=== PATIENT | female | born 1970 | race Caucasian/White ===

== ENCOUNTER 2022-03-24 18:03 | Emergency (ER) | payer MEDICAID, SELFPAY ==
[2022-03-24 18:09] VITALS: BP 135/84; PULSE 103; RESP 16; TEMP 36.4; O2SAT 98; BMI 29.9
--- NOTE | 2022-03-24 18:49 | CTR_ITS ---
PROCEDURE INFORMATION: Exam: CT Head Without Contrast Exam date and time: 03/24/2022 7:01 PM Age: 51 years old Clinical indication: Numbness / parasthesia; Bilateral; Additional info: Paresthesias TECHNIQUE: Imaging protocol: Computed tomography of the head without contrast. Radiation optimization: All CT scans at this facility use at least one of these dose optimization techniques: automated exposure control; mA and/or kV adjustment per patient size (includes targeted exams where dose is matched to clinical indication); or iterative reconstruction. Other protocol: This patient has received 0 known CTs and 0 known cardiac nuclear medicine studies in the 12 months prior to the current study. COMPARISON: No relevant prior studies available. RADIATION DOSE METRICS: Total DLP (mGy-cm): 1150.38 FINDINGS: Brain: Normal. No hemorrhage. Unremarkable white matter. No mass effect. Cerebral ventricles: No ventriculomegaly. Paranasal sinuses: Visualized sinuses are unremarkable. No fluid levels. Mastoid air cells: Visualized mastoid air cells are well aerated. Bones/joints: Unremarkable. No acute fracture. Soft tissues: Unremarkable. CT/CT head wo con* [id number] IMPRESSION: No acute intracranial abnormality.
--- NOTE | 2022-03-24 19:19 | W.ED.GENADLT ---
HPI - General Adult General: Chief complaint: General Medical Stated complaint: tongue/body numbness Time Seen by Provider: 03/24/22 18:18 Source: patient History of Present Illness: 51-year-old female who says that she began to have numbness and some tingling to her face, jaw, and toes on a flight back to [place] from [place] on 03/03. This is persisted since then. It is migrated to her upper extremities, upper back, and essentially all over her body at times now. She says that her tongue feels strange and. She denies any fever. She denies significant headache. She denies other medical problems other than alcoholism. She does state that she has had brain fog at times since that time as well, worse over the last 3 days Onset (ago): week(s) (3) Radiation: other Severity: mild Quality: other Pain Consistency: other Relieving factors: other Associated symptoms: Deny chest pain, confusion, dyspnea, fevers/chills, headache(s), palpitations, short of breath, syncope, vomiting or weakness Review of Systems Const: Denies: fever(s) Eyes: Denies: change in vision ENMT: Denies: throat pain Card: Denies: chest pain, palpitations or syncope Resp: Denies: dyspnea GI: Denies: vomiting Neuro: Denies: headache(s) or confusion Physical Exam Const: COMMON NORMALS: no acute distress and alert GENERAL APPEARANCE: cooperative; not ill appearing and not frail appearing HENMT: COMMON NORMALS: normocephalic, atraumatic and Normal external nose present HEAD & SCALP: normocephalic and atraumatic FACE & SINUS: normal facial exam and face symmetric NOSE: Normal external nose present Eye: COMMON NORMALS: Equal, round and reactive pupils present and EOMs intact bilaterally PUPIL: Yes Equal, round and reactive pupils present Neck/C-Spine: COMMON NORMALS: no meningeal signs GENERAL: Yes trachea midline Chest: CHEST: Yes Symmetrical chest wall rise Resp: COMMON NORMALS: normal respiratory effort, No retractions, No use of accessory muscles and clear to auscultation bilaterally AUSCULTATION: clear to auscultation bilaterally Cardio: COMMON NORMALS: regular rate and regular rhythm RATE: regular rate RHYTHM: regular rhythm GI: COMMON NORMALS: Normal to inspection, nondistended, normoactive bowel sounds present Extremity: COMMON NORMALS: no pedal edema Neuro: SHELIA COMA SCALE: document GCS findings [place] coma scale eye opening: Spontaneous [place] coma scale verbal response: Orientated [place] coma scale motor response: Obey commands Shelia coma scale total score: 15 COMMON NORMALS: CN's II-XII intact bilaterally, no focal motor deficits and no sensory deficits noted SENSORIUM/ORIENTATION: Yes alert MENINGEAL SIGNS: Yes no meningeal signs COORDINATION/BALANCE: [id number] test normal and dpeg-cp-[id number] test normal SPEECH: speech normal SENSORY EXAM: Yes extremities (intact) MOTOR EXAM: Pronator motor function not present, Motor fasciculations not present and Normal motor muscle tone present throughout COORDINATION: vlnryw-gu-[id number] test normal and msoc-pr-tvrx test normal Psych: COMMON NORMALS: mental status grossly normal, cooperative and speech normal SPEECH: Yes normal speech Skin: COMMON NORMALS: no rashes or lesions noted GENERAL SKIN EXAM: no rashes or lesions noted Course Vital Signs: Vital signs: Vital Signs Temperature 97.5 F L 03/24/22 18:09 Pulse Rate 94 03/24/22 20:52 Respiratory Rate 16 03/24/22 20:52 Blood Pressure 124/96 03/24/22 20:52 Pulse Oximetry 96 03/24/22 20:52 Oxygen Delivery Me thod 03/24/22 19:20 MDM - General Adult Medical Decision Making Patient admits to daily alcohol use. Paresthesias may be related to vitamin deficiency. Folic acid level is low. Her vitamin B12 level is normal. Thiamine is pending. She will be supplemented with folic acid and thiamine. Her laboratory shows a megaloblastic anemia likely related to the above. INR is normal. Platelet count is normal. Liver enzymes are minimally elevated. Alcohol level is [address] is negative. We will make her follow-up appointment with a local physician for continued care. Lab Data 03/24/22 19:15 03/24/22 19:[address] 03/24/22 18:49 IMPRESSION: No acute intracranial abnormality. Laboratory Results WBC 9.7 10^3/uL (4.0-10.0) 03/24/22 19:15 RBC 2.71 10^6/uL (4.1-5.3) L 03/24/22 19:15 Hgb 11.4 g/dL (11.5-15.3) L 03/24/22 19:15 Hct 33.3 % (37.0-47.0) L 03/24/22 19:15 MCV 122.9 fl (81-99) H 03/24/22 19:15 MCH 42.1 pg (28.0-34.0) H 03/24/22 19:15 MCHC 34.2 g/dL (30.0-36.0) 03/24/22 19:15 RDW 15.2 % (12.1-15.1) H 03/24/22 19:15 Plt Count 352 10^3/cmm (130-400) 03/24/22 19:15 MPV 9.6 fL (7.4-10.4) 03/24/22 19:15 Neut % (Auto) 45.4 % 03/24/22 19:15 Lymph % (Auto) 41.4 % 03/24/22 19:15 [place] % (Auto) 5.4 % 03/24/22 19:15 Eos % (Auto) 2.8 % 03/24/22 19:15 Baso % (Auto) 0.8 % 03/24/22 19:15 Neut # (Auto) 4.41 10^3/uL (1.8-7.7) 03/24/22 19:15 Lymph # (Auto) 4.0 10^3/uL (0.8-4.8) 03/24/22 19:15 [place] # (Auto) 0.5 10^3/uL (0.2-0.9) 03/24/22 19:15 Eos # (Auto) 0.3 10^3/uL (0.0-0.8) 03/24/22 19:15 Baso # (Auto) 0.1 10^3/uL (0.0-0.1) 03/24/22 19:15 Nucleated RBC % (auto) 0.6 % 03/24/22 19:15 Nucleated RBCs # 0.1 /100WBC 03/24/22 19:15 PT 13.20 SECONDS (12.1-14.9) 03/24/22 19:15 INR 0.97 (0.8-1.2) 03/24/22 19:15 Sodium 141 mmol/L (136-145) 03/24/22 19:15 Potassium 3.8 mmol/L (3.5-5.1) 03/24/22 19:15 Chloride 98 mmol/L (98-107) 03/24/22 19:15 Carbon Dioxide 27 mmol/L (22-29) 03/24/22 19:15 Anion Gap 19.8 (5-19) H 03/24/22 19:15 BUN 3 mg/dL (6-20) L 03/24/22 19:15 Creatinine 0.5 mg/dL (0.5-0.9) 03/24/22 19:15 GFR Calculation 130.6 mL/min (90-130) H 03/24/22 19:15 Glucose 111 mg/dL (65-115) 03/24/22 19:15 Calculated Osmolality 289 mOsm/kg (285-295) 03/24/22 19:15 Calcium 9.4 mg/dL (8.5-10.5) 03/24/22 19:15 Magnesium 2.3 mg/dL (1.7-2.3) 03/24/22 19:15 Total Bilirubin 0.8 mg/dL (0.15-1.2) 03/24/22 19:15 AST 268 U/L (0-32) H 03/24/22 19:15 ALT 83 U/L (0-33) H 03/24/22 19:15 Alkaline Phosphatase 141 U/L (35-105) H 03/24/22 19:15 Total Protein 7.5 g/dL (6.6-8.7) 03/24/22 19:15 Albumin 4.6 g/dL (3.5-5.2) 03/24/22 19:15 Globulin 2.9 g/dL (1.3-4.6) 03/24/22 19:15 Vitamin B12 493 pg/mL (232-1245) 03/24/22 19:15 Folate 2.2 ng/mL (4.8-37.3) L 03/24/22 19:15 Ethyl Alcohol 99 mg/dL (0-10) H 03/24/22 19:15 Discharge Plan Discharge Patient Disposition: Home Clinical Impression: Deficiency of folic acid Condition: Stable Prescriptions: New folic acid 1 mg tablet 1,000 mcg PO DAILY Qty: 30 0RF thiamine HCl (vitamin B1) 100 mg tablet 100 mg PO DAILY Qty: 30 0RF Discharge Orders: Discharge ED (Routine); Ordered 03/24/22 Ordered By: Suraj Khan Patient Instructions: Thiamine (By mouth), Folic Acid (By mouth), Paresthesia (ED), Alcohol Dependence (ED) Activity Restrictions/Additional Instructions: The paresthesias you are experiencing are likely due to vitamin deficiency related to alcohol use. Try supplementing with these vitamins, and we will make you a follow-up appointment for recheck. Further outpatient testing can be performed if symptoms do not resolve. Coding Level of Care Code ED Flight Test Supervisor for Chg Fwd Exam Comprehensive
[2022-03-24 19:20] VITALS: BP 143/87; PULSE 97; RESP 16; O2SAT 97
[2022-03-24 19:39] LABS: Basophils # 0.1 10^3/uL (0.0-0.1); Basophils % 0.8 %; Eosinophils # 0.3 10^3/uL (0.0-0.8); Eosinophils % 2.8 %; Hematocrit 33.3 % (37.0-47.0); Hemoglobin 11.4 g/dL (11.5-15.3); Lymphocytes % 41.4 %; Mean Corpuscular HGB Conc 34.2 g/dL (30.0-36.0); Mean Corpuscular Hemoglobin 42.1 pg (28.0-34.0); Mean Corpuscular Volume 122.9 fl (81-99); Mean Platelet Volume 9.6 fL (7.4-10.4); Monocytes # 0.5 10^3/uL (0.2-0.9); Monocytes % 5.4 %; Neutrophils # 4.41 10^3/uL (1.8-7.7); Neutrophils % 45.4 %; Nucleated Red Blood Cells # 0.1 /100WBC; Nucleated Red Blood Cells % 0.6 %; Platelet Count 352 10^3/cmm (130-400); Red Blood Count 2.71 10^6/uL (4.1-5.3); Red Cell Distribution Width 15.2 % (12.1-15.1); White Blood Count 9.7 10^3/uL (4.0-10.0)
[2022-03-24 19:45] LABS: INR 0.97 (0.8-1.2)
[2022-03-24 19:56] LABS: Alanine Aminotransferase 83 U/L (0-33); Albumin Level 4.6 g/dL (3.5-5.2); Alcohol Level 99 mg/dL (0-10); Alkaline Phosphatase 141 U/L (35-105); Anion Gap 19.8 (5-19); Aspartate Amino Transferase 268 U/L (0-32); Blood Urea Nitrogen 3 mg/dL (6-20); Calcium 9.4 mg/dL (8.5-10.5); Carbon Dioxide 27 mmol/L (22-29); Chloride 98 mmol/L (98-107); Globulin 2.9 g/dL (1.3-4.6); Glomerular Filtration Rate 130.6 mL/min (90-130); Glucose 111 mg/dL (65-115); Magnesium 2.3 mg/dL (1.7-2.3); Osmolality Calculated 289 mOsm/kg (285-295); Potassium 3.8 mmol/L (3.5-5.1); Sodium 141 mmol/L (136-145); Total Bilirubin 0.8 mg/dL (0.15-1.2); Total Protein 7.5 g/dL (6.6-8.7)
[2022-03-24 20:11] LABS: Vitamin B12 493 pg/mL (232-1245)
[2022-03-24 20:12] LABS: Folate Level 2.2 ng/mL (4.8-37.3)
[2022-03-24] MEDS: thiamine 100 mg Tablet PO (20:39)
[2022-03-24] MEDS: folic acid 1 mg Tablet PO (20:39)
[2022-03-24] MEDS: nicotine 21 mg Patch 1 PATCH TRANSDERMA (20:39)
[2022-03-24 20:52] VITALS: BP 124/96; PULSE 94; RESP 16; O2SAT 96
--- NOTE | 2022-03-25 12:56 | DCPLANNER ---
icu manager had message to speak with patient about getting established with a primary care physician. icu manager called phone number [phone] - unable to speak with patient at this time. icu manager left a voicemail for patient to return case aide phone call.
[2022-03-28 22:25] LABS: Vitamin B1 (Thiamine),Blood 104 nmol/L (78-185)
== END 2022-03-24 20:50 | disposition home or self-care (01) ==
PROVIDERS: Emergency Provider Emergency Medicine
DX: E53.8 Deficiency of other specified B group vitamins (principal)
CPT/HCPCS: 70450; 80053; 80307; 82607; 82746; 83735; 84425; 85025; 85610; 99284

== ENCOUNTER 2022-06-15 17:22 | Inpatient (IN) | payer MEDICAID, SELFPAY ==
[2022-06-15 17:29] VITALS: BP 141/86; PULSE 101; RESP 18; TEMP 37.1; O2SAT 100
--- NOTE | 2022-06-15 17:48 | W.ED.ABDPA2 ---
HPI - Abdominal Pain General: Chief Complaint: Abdominal Pain Stated Complaint: upper abd pain Time Seen by Provider: 06/15/22 17:48 History of Present Illness: Ms. Son is a 51-year-old lady with history of alcohol abuse presenting to the emergency department for epigastric abdominal pain. She reports onset of symptoms acutely at approximately 5 AM without known specific provoking event. She has had nonbilious and nonbloody emesis associated with this. Pain radiates through to the back. Moderate to severe in intensity. Reports last drink last night and over the past week has had more alcohol than typical due to increase stressors. Denies history of alcohol withdrawal seizures or DTs. No other specific changes in health, exacerbating, or alleviating factors identified. Onset (ago): hour(s) Location: Epigastric Radiation: back Exacerbating factors: eating, vomiting and movement Relieving factors: nothing Context: other Associated Symptoms: Reports chills, GI cramping, nausea and vomiting Review of Systems General: Reports: 10 or more systems reviewed and unremarkable except in HPI and below Const: Reports: chills GI: Reports: nausea, vomiting and GI cramping PFS ED PFSH: Medical History Abdominal pain Acute alcoholic pancreatitis Acute dehydration Duodenitis Hypokalemia Nausea & vomiting Transaminitis Surgical History No pertinent past surgical history Physical Exam Const: COMMON NORMALS: alert GENERAL APPEARANCE: cooperative and well developed HENMT: COMMON NORMALS: normocephalic and atraumatic HEAD & SCALP: normocephalic and atraumatic Eye: COMMON NORMALS: conjunctivae normal CONJUNCTIVA: Yes conjunctivae normal SCLERA: sclerae normal Neck/C-Spine: COMMON NORMALS: supple GENERAL: Yes trachea midline Resp: COMMON NORMALS: clear to auscultation bilaterally EFFORT & INSPECTION: Yes able to speak in complete sentences AUSCULTATION: clear to auscultation bilaterally Cardio: COMMON NORMALS: regular rhythm RATE: tachycardic RHYTHM: regular rhythm GI: COMMON NORMALS: Soft to palpation PALPATION: Yes Soft to palpation, Yes Tenderness to palpation present (GI), No Guarding due to palpation present (GI) and No Rigid due to palpation Extremity: GENERAL: Yes normal exam except as noted and No edema Neuro: COMMON NORMALS: moves all extremities SENSORIUM/ORIENTATION: Yes alert and No Orientation impaired Psych: COMMON NORMALS: mental status grossly normal and Normal thought process present THOUGHT PROCESS: Normal thought process present Course Vital Signs: Vital signs: Vital Signs Temperature 97.7 F 06/17/22 04:00 Pulse Rate 71 06/17/22 07:32 Respiratory Rate 17 06/17/22 12:53 Blood Pressure 114/73 06/17/22 07:32 Pulse Oximetry 94 06/17/22 07:32 Oxygen Delivery Me thod Room Air 06/17/22 07:32 MDM - Abdominal Pain Medical Decision Making 51-year-old lady presenting to the emergency department for epigastric pain in the context of alcohol abuse. She is uncomfortable appearing however nontoxic. Abdominal tenderness palpation is noted without evidence of acute surgical abdomen. No reported hematemesis or GI bleed type symptoms. Labs notable for mild leukocytosis and hemoconcentration compared to prior. Metabolic panel with dehydration and hypokalemia. Transaminitis consistent with reported alcohol misuse, mild elevation in lipase. No UTI. Toxic ingestions negative, UDS positive for opiates. CT demonstrates mild inflammation of the duodenum and retroperitoneal fat most consistent with pancreatitis. Patient treated with antiemetic, fluids, analgesia with only modest improvement and need for repeat doses of medication. Most likely etiology of patient's symptoms is alcoholic pancreatitis with alcoholic hepatitis. She has associated electrolyte and metabolic derangement. Given overall clinical status patient requires inpatient management. The results of ED evaluation were discussed with the patient including plan for admission due to requirement for level of care not available if discharged to prevent significant worsening/deterioration. Patient agreeable with plan. Discussed with hospitalist service who was agreeable to admit patient. Medical Records I reviewed the patient's medical records. Lab Data I reviewed the patient's lab results. 06/16/22 05:09 06/16/22 05:09 Labs/Radiology: Radiology Impressions Abdomen/Pelvis CT 06/15/22 19:14 IMPRESSION: Mild inflammation in the 3rd portion the duodenum with inflammation/fluid extending inferiorly in the retroperitoneal fat just anterior to the aorta and vena cava most consistent with mild radiographic pancreatitis. Gallbladder Ultrasound 06/15/22 23:01 IMPRESSION: 1. Hepatomegaly with echogenic parenchyma consistent with steatosis. Clinical correlation for acute/chronic hepatitis including MINER should be obtained. No obvious cirrhosis. 2. Sludge in the gallbladder lumen. No shadowing calculi or cholecystitis/bile duct dilatation. Laboratory Results WBC 12.2 10^3/uL (4.0-10.0) H 06/15/22 18:19 RBC 4.47 10^6/uL (4.1-5.3) 06/15/22 18:19 Hgb 16.0 g/dL (11.5-15.3) H 06/15/22 18:19 Hct 45.2 % (37.0-47.0) 06/15/22 18:19 MCV 101.1 fl (81-99) H 06/15/22 18:19 MCH 35.8 pg (28.0-34.0) H 06/15/22 18:19 MCHC 35.4 g/dL (30.0-36.0) 06/15/22 18:19 RDW 13.7 % (12.1-15.1) 06/15/22 18:19 Plt Count 234 10^3/cmm (130-400) 06/15/22 18:19 MPV 10.8 fL (7.4-10.4) H 06/15/22 18:19 Neut % (Auto) 70.6 % 06/15/22 18:19 Lymph % (Auto) 20.6 % 06/15/22 18:19 [place] % (Auto) 7.0 % 06/15/22 18:19 Eos % (Auto) 1.1 % 06/15/22 18:19 Baso % (Auto) 0.3 % 06/15/22 18:19 Neut # (Auto) 8.63 10^3/uL (1.8-7.7) H 06/15/22 18:19 Lymph # (Auto) 2.5 10^3/uL (0.8-4.8) 06/15/22 18:19 [place] # (Auto) 0.9 10^3/uL (0.2-0.9) 06/15/22 18:19 Eos # (Auto) 0.1 10^3/uL (0.0-0.8) 06/15/22 18:19 Baso # (Auto) 0.0 10^3/uL (0.0-0.1) 06/15/22 18:19 Nucleated RBC % (auto) 0 % 06/15/22 18:19 Nucleated RBCs # 0.0 /100WBC 06/15/22 18:19 PT 13.20 SECONDS (12.1-14.9) 06/15/22 18:19 INR 0.97 (0.8-1.2) 06/15/22 18:19 APTT 26.4 SECONDS (23.9-36.7) 06/15/22 18:19 Sodium 128 mmol/L (136-145) L 06/15/22 18:19 Potassium 2.6 mmol/L (3.5-5.1) L* 06/15/22 18:19 Chloride 89 mmol/L (98-107) L 06/15/22 18:19 Carbon Dioxide 27 mmol/L (22-29) 06/15/22 18:19 Anion Gap 14.6 (5-19) 06/15/22 18:19 BUN 1 mg/dL (6-20) L 06/15/22 18:19 Creatinine 0.5 mg/dL (0.5-0.9) 06/15/22 18:19 GFR Calculation 130.6 mL/min (90-130) H 06/15/22 18:19 Glucose 113 mg/dL (65-115) 06/15/22 18:19 Calculated Osmolality 263 mOsm/kg (285-295) L 06/15/22 18:19 Calcium 8.7 mg/dL (8.5-10.5) 06/15/22 18:19 Magnesium 1.8 mg/dL (1.7-2.3) 06/15/22 18:19 Total Bilirubin 1.2 mg/dL (0.15-1.2) 06/15/22 18:19 AST 132 U/L (0-32) H 06/15/22 18:19 ALT 91 U/L (0-33) H 06/15/22 18:19 Alkaline Phosphatase 178 U/L (35-105) H 06/15/22 18:19 C-Reactive Protein 15.7 mg/L (0.0-4.9) H 06/15/22 18:19 Total Protein 6.5 g/dL (6.6-8.7) L 06/15/22 18:19 Albumin 3.9 g/dL (3.5-5.2) 06/15/22 18:19 Globulin 2.6 g/dL (1.3-4.6) 06/15/22 18:19 Lipase 86 U/L (13-60) H 06/15/22 18:19 Vitamin B12 504 pg/mL (232-1245) 06/15/22 18:19 Folate Cancelled 06/15/22 18:19 Procalcitonin 0.11 ng/mL (0-0.5) 06/15/22 18:19 TSH 9.97 uIU/mL (0.27-4.20) H 06/15/22 18:19 Free T4 1.23 ng/dL (0.82-1.77) 06/15/22 18:19 HCG, Qual Negative (Negative) 06/15/22 18:19 Urine Color Yellow (Yellow) 06/15/22 19:12 Urine Appearance Clear (CLEAR) 06/15/22 19:12 Urine pH 7 (5-7) 06/15/22 19:12 Ur Specific [place] 1.010 (1.005-1.030) 06/15/22 19:12 Urine Protein Neg (Negative) 06/15/22 19:12 Urine Glucose (UA) Norm (Normal) 06/15/22 19:12 Urine Ketones Negative (Negative) 06/15/22 19:12 Urine Blood Neg (Negative) 06/15/22 19:12 Urine Nitrate Negative (Negative) 06/15/22 19:12 Urine Bilirubin Neg (Negative) 06/15/22 19:12 Urine Urobilinogen 1 mg/dL (Negative) H 06/15/22 19:12 Ur Leukocyte Esterase Negative (Negative) 06/15/22 19:12 Salicylates < 0.3 mg/dL (3-10) L 06/15/22 18:19 Urine Opiates Screen Positive ng/mL (Negative) H 06/15/22 19:04 Acetaminophen < 5.0 ug/mL (10-30) L 06/15/22 18:19 Ur Barbiturates Screen Negative ng/mL (Negative) 06/15/22 19:04 Ur Phencyclidine Scrn Negative ng/mL (Negative) 06/15/22 19:04 Ur Amphetamines Screen Negative ng/mL (Negative) 06/15/22 19:04 U Benzodiazepines Scrn Negative ng/mL (Negative) 06/15/22 19:04 Urine Cocaine Screen Negative ng/mL (Negative) 06/15/22 19:04 U Marijuana (THC) Screen Negative ng/mL (Negative) 06/15/22 19:04 Ethyl Alcohol < 10 mg/dL (0-10) 06/15/22 18:19 Discharge Plan Discharge Patient Disposition: Placed in Observation Admit Provider: Case Bowden Clinical Impression: Acute alcoholic pancreatitis, Abdominal pain, Transaminitis, Duodenitis, Hypokalemia, Acute dehydration, Nausea & vomiting Coding Level of Care Code 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
--- NOTE | 2022-06-15 17:57 | PC.NURSE ---
pt admits to suicidal thoughts but states she has no plans. reports she just restarted her medication about 2 months ago but has missed the past 3 days. education provided to pt regarding importance of taking medications as prescribed and avoidance of drinking alcohol with medications. pt verbalized understanding.
[2022-06-15 18:29] LABS: Basophils % 0.3 %; Eosinophils # 0.1 10^3/uL (0.0-0.8); Eosinophils % 1.1 %; Hematocrit 45.2 % (37.0-47.0); Lymphocytes # 2.5 10^3/uL (0.8-4.8); Lymphocytes % 20.6 %; Mean Corpuscular HGB Conc 35.4 g/dL (30.0-36.0); Mean Corpuscular Hemoglobin 35.8 pg (28.0-34.0); Mean Corpuscular Volume 101.1 fl (81-99); Mean Platelet Volume 10.8 fL (7.4-10.4); Monocytes # 0.9 10^3/uL (0.2-0.9); Neutrophils # 8.63 10^3/uL (1.8-7.7); Neutrophils % 70.6 %; Nucleated Red Blood Cells % 0 %; Platelet Count 234 10^3/cmm (130-400); Red Blood Count 4.47 10^6/uL (4.1-5.3); Red Cell Distribution Width 13.7 % (12.1-15.1); White Blood Count 12.2 10^3/uL (4.0-10.0)
[2022-06-15 18:38] LABS: HCG, Serum Qual Negative (Negative)
[2022-06-15 18:39] LABS: INR 0.97 (0.8-1.2); Partial Thromboplastin Time 26.4 SECONDS (23.9-36.7)
[2022-06-15] MEDS: morphine 4 mg/mL SDV 1 mL IVP ×2 (18:54→20:34)
[2022-06-15] MEDS: ondansetron 2 mg/ML SDV 2 mL 4 MG IVP (18:54)
[2022-06-15] MEDS: sodium chloride 0.9% 1,000 ML 999 ML IV (18:54)
[2022-06-15 19:01] LABS: Alanine Aminotransferase 91 U/L (0-33); Albumin Level 3.9 g/dL (3.5-5.2); Alkaline Phosphatase 178 U/L (35-105); Anion Gap 14.6 (5-19); Aspartate Amino Transferase 132 U/L (0-32); Calcium 8.7 mg/dL (8.5-10.5); Carbon Dioxide 27 mmol/L (22-29); Chloride 89 mmol/L (98-107); Globulin 2.6 g/dL (1.3-4.6); Glomerular Filtration Rate 130.6 mL/min (90-130); Glucose 113 mg/dL (65-115); Lipase 86 U/L (13-60); Sodium 128 mmol/L (136-145); Total Bilirubin 1.2 mg/dL (0.15-1.2); Total Protein 6.5 g/dL (6.6-8.7)
[2022-06-15 19:02] LABS: Thyroid Stimulating Hormone 9.97 uIU/mL (0.27-4.20)
[2022-06-15 19:08] LABS: Acetaminophen < 5.0 ug/mL (10-30); Alcohol Level < 10 mg/dL (0-10); Blood Urea Nitrogen 1 mg/dL (6-20); Osmolality Calculated 263 mOsm/kg (285-295); Salicylate < 0.3 mg/dL (3-10)
[2022-06-15 19:10] LABS: Potassium 2.6 mmol/L (3.5-5.1)
--- NOTE | 2022-06-15 19:14 | CTR_ITS ---
PROCEDURE INFORMATION: Exam: CT Abdomen And Pelvis With Contrast Exam date and time: 06/15/2022 7:42 PM Age: 51 years old Clinical indication: Abdominal pain; Epigastric; Additional info: Epigastric pain, ? pancreatitis, HX alcohol abuse TECHNIQUE: Imaging protocol: Computed tomography of the abdomen and pelvis with contrast. Radiation optimization: All CT scans at this facility use at least one of these dose optimization techniques: automated exposure control; mA and/or kV adjustment per patient size (includes targeted exams where dose is matched to clinical indication); or iterative reconstruction. Contrast material: OMNI 350; Contrast volume: 100 ml; Contrast route: INTRAVENOUS (IV); REPORTING DATA: Count of CT and Cardiac NM exams in prior 12 months: This patient has received [address] and 0 known cardiac nuclear medicine studies in the 12 months prior to the current study. COMPARISON: No relevant prior studies available. RADIATION DOSE METRICS: Total DLP (mGy-cm): 637.61 FINDINGS: Liver: Normal. No mass. Gallbladder and bile ducts: Normal. No calcified stones. No ductal dilation. Pancreas: See Stomach and bowel finding. Spleen: Normal. No splenomegaly. Adrenal glands: Normal. No mass. Kidneys and ureters: One or more nonobstructing left renal calyceal stones. Stomach and bowel: Mild inflammation in the 3rd portion the duodenum with inflammation/fluid extending inferiorly in the retroperitoneal fat just anterior to the aorta and vena cava most consistent with mild radiographic pancreatitis. Appendix: No evidence of appendicitis. Intraperitoneal space: Unremarkable. No free air. No significant fluid collection. Vasculature: Calcification of the abdominal aorta and/or iliac arteries consistent with atherosclerotic vessel disease. One or more calcified pelvic phleboliths. Lymph nodes: Unremarkable. No enlarged lymph nodes. Urinary bladder: Unremarkable as visualized. Reproductive: Unremarkable as visualized. Bones/joints: Unremarkable. No acute fracture. Soft tissues: Unremarkable. CT/CT abdomen pelvis w con* [id number] IMPRESSION: Mild inflammation in the 3rd portion the duodenum with inflammation/fluid extending inferiorly in the retroperitoneal fat just anterior to the aorta and vena cava most consistent with mild radiographic pancreatitis.
[2022-06-15 19:16] LABS: Add Urine Microscopic? NO; Charge for UA Resulting for Rev
[2022-06-15 19:20] LABS: Bilirubin Urine Neg (Negative); Blood Urine Neg (Negative); Glucose Urine UA Norm (Normal); Ketones Urine Negative (Negative); Leukocyte Esterase Urine Negative (Negative); Nitrate Urine Negative (Negative); Protein Urine Neg (Negative); Urine Appearance Clear (CLEAR); Urine Color Yellow (Yellow); Urobilinogen Urine 1 mg/dL (Negative); pH Urine 7 (5-7)
[2022-06-15 19:34] LABS: Amphetamines Screen Urine Negative (Negative); Barbiturates Screen Urine Negative (Negative); Benzodiazepines Screen Urine Negative (Negative); Cocaine Screen Urine Negative (Negative); Opiate Screen Urine Positive (Negative); PCP Screen Urine Negative (Negative); THC Screen Urine Negative (Negative)
[2022-06-15] MEDS: iohexol 350 mg/mL 500 mL Btl (per mL) IV (19:46)
[2022-06-15] MEDS: lidocaine 1% 5 ML in potassium chloride premix 100 ML 26.25 ML IV (19:58)
[2022-06-15] MEDS: nicotine 21 mg Patch 1 PATCH TRANSDERMA (20:28)
[2022-06-15 20:34] VITALS: RESP 16; O2SAT 98
[2022-06-15] MEDS: sodium chloride 0.9% 1,000 ML 150 ML IV (20:44)
[2022-06-15 22:02] VITALS: BP 122/77; PULSE 97; RESP 18; TEMP 36.5; O2SAT 90
[2022-06-15 22:22] VITALS: BP 121/77; PULSE 88; RESP 16; TEMP 36.7; O2SAT 93
[2022-06-15 22:31] VITALS: BMI 28.4
--- NOTE | 2022-06-15 22:46 | P.HP_ITS ---
Providers/Chief Complaint Admitting Physician: Case Bowden MD Chief Complaint: upper abd pain History of Present Illness Fernanda Son is a 51 year old female with a past medical history of alcoholism, history of mild alcohol withdrawal, presents to [facility] due to concerns for abdominal pain, nausea, her last drink was last night at 11 PM, she is not sure how much alcohol she drank, but she tells me that in the last week she went through a couple bottles of vodka, she tells me that she is gone through alcohol withdrawals in the past with only minor shakes, no other significant symptoms, but today she started developing lower abdominal pain, with nausea, no lightheadedness, dizziness, poor appetite, no diarrhea, her abdomen is a bit bloated, a bit distended, Review of Systems Const: Denies: fever(s) Eyes: Denies: change in vision Card: Denies: chest pain Resp: Denies: dyspnea GI: Reports: abdominal pain and nausea : Denies: flank pain or difficulty voiding Musc: Denies: back pain Skin/Breast: Denies: rash Neuro: Denies: headache(s) Medications/Allergies Home Medications Medication Instructions Recorded Confirmed Last Taken Type fluoxetine 20 mg capsule (Prozac) 20 mg PO DAILY 06/15/22 06/15/22 Unknown History vit no.95-ferrous 1 tab PO DAILY 06/15/22 06/15/22 Unknown History fumarate 28 mg-folic acid 800 mcg tablet () Allergies Allergy/AdvReac Type Severity Reaction Status Date / Time No Known Allergies Allergy Verified 03/24/22 18:15 PFSH Acute PFSH: Surgical History (Updated 06/15/22 @ 22:49 by Case Bowden MD) No pertinent past surgical history Vitals/I&O/Wt Last Vital Signs Temp 98.1 F 06/15/22 22:22 Pulse 88 06/15/22 22:22 Resp 16 06/15/22 22:22 BP 121/77 06/15/22 22:22 Pulse Ox 93 06/15/22 22:22 O2 Del Method Room Air 06/15/22 22:31 06/15/22 06/15/22 06/15/22 06:59 14:59 22:59 Intake Total 1000 / 1000 Balance 1000 / 1000 Weight last 48 hrs Weight 79.917 kg Weight 77.111 kg Physical Exam Const: COMMON NORMALS: no acute distress and patient oriented x3 HENMT: COMMON NORMALS: normocephalic Eye: COMMON NORMALS: Equal, round and reactive pupils present and EOMs intact bilaterally Neck/C-Spine: COMMON NORMALS: full ROM and no lymphadenopathy Resp: COMMON NORMALS: normal respiratory effort, No retractions, No use of accessory muscles and clear to auscultation bilaterally AUSCULTATION: clear to auscultation bilaterally Cardio: COMMON NORMALS: regular rate, regular rhythm, S1 normal heart sound present and S2 normal heart sound present RATE: regular rate RHYTHM: regular rhythm HEART SOUNDS: S1 normal heart sound present and S2 normal heart sound present GI: COMMON NORMALS: Soft to palpation INSPECTION: Yes normal to inspection and Yes abdominal distension AUSCULTATION: Yes Hypoactive bowel sounds present PALPATION: Yes Tenderness to palpation present (GI) Details: LLQ, RLQ, LUQ and RUQ Extremity: COMMON NORMALS: no pedal edema Neuro: COMMON NORMALS: patient oriented x3, CN's II-XII intact bilaterally, moves all extremities and no focal motor deficits Psych: COMMON NORMALS: mental status grossly normal Data 06/15/22 18:19 06/15/22 18:19 A&P Assessment and plan (1) Acute alcoholic pancreatitis: (2) Abdominal pain: (3) Transaminitis: (4) Duodenitis: (5) Hypokalemia: (6) Acute dehydration: (7) Nausea & vomiting: Plan Acute alcoholic pancreatitis -N.p.o. -IV fluids -Serial abdominal exams -Patient is DNR/DNI, confirmed with patient multiple times, son at bedside, she wants her son to make decisions for her if she cannot -Lovenox for DVT prophylaxis Acute hypokalemia -We will replace IV 80 mEq Serum magnesium levels pending Acute dehydration, IV fluids Duodenitis, likely secondary to pancreatitis, monitor, n.p.o. Acute alcohol withdrawal, WA protocol, banana bag Acute hyponatremia, IV fluids, dehydration Transaminitis likely sec to alcoholism Right upper quadrant pain, gallbladder ultrasound Attestations 2 Medical Necessity Statement*: Patient requires hospitalization, inpatient, greater than 2 midnights, for acute pancreatitis, alcohol withdrawal Coding Level of Care Code Acute Code for [facility] Diagnoses Acute alcoholic pancreatitis K85.20 Abdominal pain R10.9 Transaminitis R74.01 Duodenitis K29.80 Hypokalemia E87.6 Acute dehydration E86.0 Nausea & vomiting R11.2
[2022-06-15 22:53] VITALS: PULSE 86
--- NOTE | 2022-06-15 23:01 | USR_ITS ---
PROCEDURE INFORMATION: Exam: US Abdomen, Limited; Right Upper Quadrant Exam date and time: 06/15/2022 11:55 PM Age: 51 years old Clinical indication: Abdominal pain; Generalized; Additional info: Ruq pain TECHNIQUE: Imaging protocol: Real time ultrasound of the abdomen with image documentation. Limited exam focused on the right upper quadrant. COMPARISON: CT abdomen pelvis w con* [id number] 06/15/2022 7:42 PM FINDINGS: Liver: Details are somewhat limited due to echogenic liver and gaseous abdomen. Liver is enlarged with slightly echogenic parenchyma suggesting steatosis. No obvious cirrhosis or regional ascites. Assessment for mass lesions limited in this setting however no suspicious lesions were noted on recent CT exam. Gallbladder: Sludge in the lumen. No shadowing gallstones. There is no gallbladder wall thickening or Mckeon sign. Biliary ducts: No significant biliary dilatation. Proximal CBD measures 5 mm however distal CBD is obscured. Pancreas: Pancreas is poorly visualized. Right kidney: Normal. No mass. No hydronephrosis. Portal venous: Patent main portal vein with normal flow direction. US/US gall bladder [id number] IMPRESSION: 1. Hepatomegaly with echogenic parenchyma consistent with steatosis. Clinical correlation for acute/chronic hepatitis including MINER should be obtained. No obvious cirrhosis. 2. Sludge in the gallbladder lumen. No shadowing calculi or cholecystitis/bile duct dilatation.
[2022-06-15 23:28] VITALS: RESP 16
[2022-06-15] MEDS: pantoprazole 40 mg SDV IVP (23:28)
[2022-06-15] MEDS: morphine 4 mg/mL SDV 1 mL 2 MG IVP (23:28)
[2022-06-15] MEDS: LORazepam 2 mg/mL INJ 1 mL 1 MG IVP (23:29)
[2022-06-15] MEDS: enoxaparin 40 mg/0.4 mL Syringe SUBCUT (23:30)
[2022-06-15 23:35] LABS: Procalcitonin 0.11 ng/mL (0-0.5); Vitamin B12 504 pg/mL (232-1245)
[2022-06-15 23:53] LABS: Free T4 Free Thyroxine 1.23 ng/dL (0.82-1.77); Magnesium 1.8 mg/dL (1.7-2.3)
[2022-06-16] VITALS (12 sets, daily range): BP systolic 116–133; BP diastolic 76–85; PULSE 79–94; RESP 15–18; TEMP 36.6–36.8; O2SAT 90–98
[2022-06-16] MEDS: folic acid 1 MG, multivitamin inj 10 ML, thiamine 100 MG in sodium chloride 0.9% 1,000 ML 252.8 MG IV (00:23)
[2022-06-16 01:02] LABS: C Reactive Protein 15.7 mg/L (0.0-4.9)
[2022-06-16] MEDS: lidocaine 1% 5 ML in potassium chloride premix 100 ML 26.25 ML IV (01:26)
[2022-06-16] MEDS: morphine 4 mg/mL SDV 1 mL 2 MG IVP ×3 (04:11→20:15)
[2022-06-16 05:40] LABS: Basophils % 0.4 %; Eosinophils # 0.2 10^3/uL (0.0-0.8); Eosinophils % 1.8 %; Hematocrit 38.5 % (37.0-47.0); Hemoglobin 13.3 g/dL (11.5-15.3); Lymphocytes # 2.5 10^3/uL (0.8-4.8); Lymphocytes % 30.7 %; Mean Corpuscular HGB Conc 34.5 g/dL (30.0-36.0); Mean Corpuscular Hemoglobin 36.2 pg (28.0-34.0); Mean Corpuscular Volume 104.9 fl (81-99); Mean Platelet Volume 11.3 fL (7.4-10.4); Monocytes # 0.5 10^3/uL (0.2-0.9); Monocytes % 5.9 %; Neutrophils # 5.03 10^3/uL (1.8-7.7); Nucleated Red Blood Cells % 0 %; Platelet Count 170 10^3/cmm (130-400); Red Blood Count 3.67 10^6/uL (4.1-5.3); Red Cell Distribution Width 14.3 % (12.1-15.1); White Blood Count 8.3 10^3/uL (4.0-10.0)
[2022-06-16 07:35] LABS: Alanine Aminotransferase 72 U/L (0-33); Albumin Level 3.2 g/dL (3.5-5.2); Alkaline Phosphatase 147 U/L (35-105); Anion Gap 11.7 (5-19); Aspartate Amino Transferase 117 U/L (0-32); Blood Urea Nitrogen 2 mg/dL (6-20); Calcium 7.3 mg/dL (8.5-10.5); Carbon Dioxide 25 mmol/L (22-29); Chloride 99 mmol/L (98-107); Globulin 1.7 g/dL (1.3-4.6); Glucose 95 mg/dL (65-115); Magnesium 1.7 mg/dL (1.7-2.3); Osmolality Calculated 270 mOsm/kg (285-295); Phosphorus 2.9 mg/dL (2.5-4.5); Potassium 3.7 mmol/L (3.5-5.1); Sodium 132 mmol/L (136-145); Total Bilirubin 1.8 mg/dL (0.15-1.2); Total Protein 4.9 g/dL (6.6-8.7)
[2022-06-16 08:01] LABS: Folate Level > 20.0 ng/mL (4.8-37.3)
[2022-06-16] MEDS: multivitamin therapeutic Tablet 1 TAB PO (09:04)
[2022-06-16] MEDS: folic acid 1 mg Tablet PO (09:04)
[2022-06-16] MEDS: thiamine 100 mg Tablet PO (09:04)
[2022-06-16] MEDS: LORazepam 2 mg/mL INJ 1 mL 1 MG IVP (10:19)
--- NOTE | 2022-06-16 15:52 | PC.NURSE ---
This nurse flexing out. Report given to DEANN Villaseñor. All questions answered.
--- NOTE | 2022-06-16 18:21 | P.PN_ITS ---
Subjective Subjective: Pain is better today but still persisting in the epigastric region. No vomiting. Passing gas. Has not had a bowel movement yet. She is starting to get hungry and wishes to advance her diet to clears. Medications: Reviewed: Yes Vitals/I&O/Wt Last Vital Signs Temp 98.3 F 06/16/22 15:35 Pulse 79 06/16/22 15:35 Resp 16 06/16/22 15:45 BP 133/85 06/16/22 15:35 Pulse Ox 98 06/16/22 15:45 O2 Del Method Room Air 06/16/22 15:35 06/16/22 06/16/22 06/16/22 06:59 14:59 22:59 Intake Total 2221.2 / 3221.2 Balance 2221.2 / 3221.2 Weight last 48 hrs Weight 79.917 kg Weight 77.111 kg Physical Exam Narrative: General: No acute distress, AO x3 HEENT: PERRLA, pupils bilaterally equal and reactive, pallors not present Chest: Normal vesicular breath sounds, no added sounds, equal good air entry bilaterally CVS: S1-S2 regular, no murmurs, no tachycardia, no gallops, no rubs Abdomen: Soft, nontender, no organomegaly, bowel sounds present Neuro: No focal deficits, no facial deformity, AO x3, power 5/5 in all limbs Data 06/16/22 05:09 06/16/22 05:09 A&P Assessment and plan (1) Acute alcoholic pancreatitis: (2) Abdominal pain: (3) Transaminitis: (4) Duodenitis: (5) Hypokalemia: (6) Acute dehydration: (7) Nausea & vomiting: Plan Acute alcoholic pancreatitis -Advance to clear liquid diet today -IV fluids to continue -Serial abdominal exams Acute hypokalemia -Resolved today, currently at 3.7 Acute dehydration, IV fluids Duodenitis, likely secondary to pancreatitis, monitor, n.p.o. Acute alcohol withdrawal, CIWA protocol, banana bag Acute hyponatremia, IV fluids, dehydration Transaminitis likely sec to alcoholism Right upper quadrant pain, gallbladder ultrasound without signs of acute ch olecystitis, shows hepatic steatosis, chronic hepatitis. Attestations Medical Necessity Statement*: Advance diet today, wishes a trial of clears Coding Level of Care Code Acute Code for [facility] Fwd Diagnoses Acute alcoholic pancreatitis K85.20 Abdominal pain R10.9 Transaminitis R74.01 Duodenitis K29.80 Hypokalemia E87.6 Acute dehydration E86.0 Nausea & vomiting R11.2
[2022-06-16] MEDS: nicotine 14 mg Patch 1 PATCH TRANSDERMA (18:44)
[2022-06-16] MEDS: sodium chloride 0.9% 1,000 ML 75 ML IV (21:44)
[2022-06-16] MEDS: enoxaparin 40 mg/0.4 mL Syringe SUBCUT (23:29)
[2022-06-16] MEDS: pantoprazole 40 mg SDV IVP (23:44)
[2022-06-17] VITALS (7 sets, daily range): BP systolic 114–126; BP diastolic 73–79; PULSE 71–89; RESP 15–18; TEMP 36.5; O2SAT 94–95
[2022-06-17] MEDS: morphine 4 mg/mL SDV 1 mL 2 MG IVP ×3 (04:37→12:19)
[2022-06-17] MEDS: acetaminophen 325 mg Tablet 650 MG PO (08:21)
[2022-06-17] MEDS: folic acid 1 mg Tablet PO (08:22)
[2022-06-17] MEDS: thiamine 100 mg Tablet PO (08:22)
[2022-06-17] MEDS: nicotine 14 mg Patch 1 PATCH TRANSDERMA (08:23)
[2022-06-17] MEDS: multivitamin therapeutic Tablet 1 TAB PO (08:23)
--- NOTE | 2022-06-17 12:02 | P.DS_ITS ---
Discharge Providers Date of Admission: 06/15/22 20:27 Date of Discharge: June 17, 2022 Attending Provider at Admission: Case Bowden MD Attending Provider at Discharge: Rne Palma MD Diagnoses at Discharge Discharge Diagnosis (1) Acute alcoholic pancreatitis: Status: Acute (2) Abdominal pain: Status: Acute (3) Transaminitis: Status: Acute (4) Duodenitis: Status: Acute (5) Hypokalemia: Status: Acute (6) Acute dehydration: Status: Acute (7) Nausea & vomiting: Status: Acute Reason for Visit Reason for Visit: upper abd pain Hospital Course Hospital Course ?51 year old female with a past medical history of alcoholism, history of mild alcohol withdrawal, presents to [facility] due to concerns for abdominal pain, nausea, she was admitted for the management of acute pancreatitis secondary to alcohol abuse disorder, she was managed conservatively, initially she was kept npo, IV fluids, pain control, to which she responded well, later she was started on, clear liquids, and the diet was advanced as tolerated, at the time of discharge the pain was well controlled, she denied any nausea vomiting, during the hospital stay she was also managed for acute hypokalemia received IV potassium, serum potassium was monitored, she was also managed for hyponatremia with IV fluids as well as dehydration, for her history of alcohol abuse disorder, she was monitored for alcohol withdrawal, she was kept on CIWA protocol, overall patient responded well, to medical management, she was discharged in stable condition to home, she will continue to follow her PCP as outpatient. Physical Exam Const: COMMON NORMALS: patient oriented x3 HENMT: COMMON NORMALS: normocephalic, atraumatic and hearing grossly normal bilaterally HEAD & SCALP: normocephalic and atraumatic Resp: COMMON NORMALS: normal respiratory effort, No retractions, No use of accessory muscles and clear to auscultation bilaterally EFFORT & INSPECTION: Yes symmetric chest movement AUSCULTATION: clear to auscultation bilaterally Cardio: COMMON NORMALS: regular rate, regular rhythm, S1 normal heart sound present, S2 normal heart sound present, No gallops present (Cardio), No murmurs present (Cardio), No rub (Cardio) and Peripheral pulses 2+ throughout RATE: regular rate RHYTHM: regular rhythm HEART SOUNDS: S1 normal heart sound present and S2 normal heart sound present PERIPHERAL PULSES: Peripheral pulses 2+ throughout GI: COMMON NORMALS: Normal to inspection, nondistended, normoactive bowel sounds present, Soft to palpation, non-tender, No hepatosplenomegaly present and no masses AUSCULTATION: Yes normoactive bowel sounds PALPATION: Yes Soft to palpation and Yes No hepatosplenomegaly present RECTAL EXAM: deferred Extremity: COMMON NORMALS: no clubbing, cyanosis or edema and no pedal edema Neuro: COMMON NORMALS: patient oriented x3 Discharge Data Studies Completed and Pending Completed Studies During Hospitalization Category Date Time Status CT abdomen pelvis w con* [id number] Stat Cat Scan 06/15/22 19:14 Completed US gall bladder [id number] Routine Ultrasound 06/15/22 23:01 Completed Radiology Impressions Abdomen/Pelvis CT 06/15/22 19:14 IMPRESSION: Mild inflammation in the 3rd portion the duodenum with inflammation/fluid extending inferiorly in the retroperitoneal fat just anterior to the aorta and vena cava most consistent with mild radiographic pancreatitis. Gallbladder Ultrasound 06/15/22 23:01 IMPRESSION: 1. Hepatomegaly with echogenic parenchyma consistent with steatosis. Clinical correlation for acute/chronic hepatitis including MINER should be obtained. No obvious cirrhosis. 2. Sludge in the gallbladder lumen. No shadowing calculi or cholecystitis/bile duct dilatation. Laboratory Results WBC 8.3 10^3/uL (4.0-10.0) 06/16/22 05:09 RBC 3.67 10^6/uL (4.1-5.3) L 06/16/22 05:09 Hgb 13.3 g/dL (11.5-15.3) 06/16/22 05:09 Hct 38.5 % (37.0-47.0) 06/16/22 05:09 MCV 104.9 fl (81-99) H 06/16/22 05:09 MCH 36.2 pg (28.0-34.0) H 06/16/22 05:09 MCHC 34.5 g/dL (30.0-36.0) 06/16/22 05:09 RDW 14.3 % (12.1-15.1) 06/16/22 05:09 Plt Count 170 10^3/cmm (130-400) 06/16/22 05:09 MPV 11.3 fL (7.4-10.4) H 06/16/22 05:09 Neut % (Auto) 61.0 % 06/16/22 05:09 Lymph % (Auto) 30.7 % 06/16/22 05:09 Murray % (Auto) 5.9 % 06/16/22 05:09 Eos % (Auto) 1.8 % 06/16/22 05:09 Baso % (Auto) 0.4 % 06/16/22 05:09 Neut # (Auto) 5.03 10^3/uL (1.8-7.7) 06/16/22 05:09 Lymph # (Auto) 2.5 10^3/uL (0.8-4.8) 06/16/22 05:09 Murray # (Auto) 0.5 10^3/uL (0.2-0.9) 06/16/22 05:09 Eos # (Auto) 0.2 10^3/uL (0.0-0.8) 06/16/22 05:09 Baso # (Auto) 0.0 10^3/uL (0.0-0.1) 06/16/22 05:09 Nucleated RBC % (auto) 0 % 06/16/22 05:09 Nucleated RBCs # 0.0 /100WBC 06/16/22 05:09 PT 13.20 SECONDS (12.1-14.9) 06/15/22 18:19 INR 0.97 (0.8-1.2) 06/15/22 18:19 APTT 26.4 SECONDS (23.9-36.7) 06/15/22 18:19 Sodium 132 mmol/L (136-145) L 06/16/22 05:09 Potassium 3.7 mmol/L (3.5-5.1) 06/16/22 05:09 Chloride 99 mmol/L (98-107) 06/16/22 05:09 Carbon Dioxide 25 mmol/L (22-29) 06/16/22 05:09 Anion Gap 11.7 (5-19) 06/16/22 05:09 BUN 2 mg/dL (6-20) L 06/16/22 05:09 Creatinine 0.4 mg/dL (0.5-0.9) L 06/16/22 05:09 GFR Calculation 169.0 mL/min (90-130) H 06/16/22 05:09 Glucose 95 mg/dL (65-115) 06/16/22 05:09 Calculated Osmolality 270 mOsm/kg (285-295) L 06/16/22 05:09 Calcium 7.3 mg/dL (8.5-10.5) L 06/16/22 05:09 Phosphorus 2.9 mg/dL (2.5-4.5) 06/16/22 05:09 Magnesium 1.7 mg/dL (1.7-2.3) 06/16/22 05:09 Total Bilirubin 1.8 mg/dL (0.15-1.2) H 06/16/22 05:09 AST 117 U/L (0-32) H 06/16/22 05:09 ALT 72 U/L (0-33) H 06/16/22 05:09 Alkaline Phosphatase 147 U/L (35-105) H 06/16/22 05:09 C-Reactive Protein 15.7 mg/L (0.0-4.9) H 06/15/22 18:19 Total Protein 4.9 g/dL (6.6-8.7) L D 06/16/22 05:09 Albumin 3.2 g/dL (3.5-5.2) L 06/16/22 05:09 Globulin 1.7 g/dL (1.3-4.6) 06/16/22 05:09 Lipase 86 U/L (13-60) H 06/15/22 18:19 Vitamin B12 504 pg/mL (232-1245) 06/15/22 18:19 Folate > 20.0 ng/mL (4.8-37.3) 06/16/22 05:09 Procalcitonin 0.11 ng/mL (0-0.5) 06/15/22 18:19 TSH 9.97 uIU/mL (0.27-4.20) H 06/15/22 18:19 Free T4 1.23 ng/dL (0.82-1.77) 06/15/22 18:19 HCG, Qual Negative (Negative) 06/15/22 18:19 Urine Color Yellow (Yellow) 06/15/22 19:12 Urine Appearance Clear (CLEAR) 06/15/22 19:12 Urine pH 7 (5-7) 06/15/22 19:12 Ur Specific [place] 1.010 (1.005-1.030) 06/15/22 19:12 Urine Protein Neg (Negative) 06/15/22 19:12 Urine Glucose (UA) Norm (Normal) 06/15/22 19:12 Urine Ketones Negative (Negative) 06/15/22 19:12 Urine Blood Neg (Negative) 06/15/22 19:12 Urine Nitrate Negative (Negative) 06/15/22 19:12 Urine Bilirubin Neg (Negative) 06/15/22 19:12 Urine Urobilinogen 1 mg/dL (Negative) H 06/15/22 19:12 Ur Leukocyte Esterase Negative (Negative) 06/15/22 19:12 Salicylates < 0.3 mg/dL (3-10) L 06/15/22 18:19 Urine Opiates Screen Positive ng/mL (Negative) H 06/15/22 19:04 Acetaminophen < 5.0 ug/mL (10-30) L 06/15/22 18:19 Ur Barbiturates Screen Negative ng/mL (Negative) 06/15/22 19:04 Ur Phencyclidine Scrn Negative ng/mL (Negative) 06/15/22 19:04 Ur Amphetamines Screen Negative ng/mL (Negative) 06/15/22 19:04 U Benzodiazepines Scrn Negative ng/mL (Negative) 06/15/22 19:04 Urine Cocaine Screen Negative ng/mL (Negative) 06/15/22 19:04 U Marijuana (THC) Screen Negative ng/mL (Negative) 06/15/22 19:04 Ethyl Alcohol < 10 mg/dL (0-10) 06/15/22 18:19 Vitals Last Vital Signs Temp 97.7 F 06/17/22 04:00 Pulse 71 06/17/22 07:32 Resp 15 06/17/22 08:20 BP 114/73 06/17/22 07:32 Pulse Ox 94 06/17/22 07:32 O2 Del Method Room Air 06/17/22 07:32 Discharge Plan Discharge Patient Disposition: Home Condition: Stable Prescriptions: New acetaminophen 325 mg Tablet 650 mg PO Q6H PRN (Reason: Mild/Mod Pain Or Temp >/= 101) 14 Days Qty: 30 0RF folic acid 1 mg Tablet 1 mg PO DAILY 30 Days Qty: 30 1RF Vitamin B-1 (mononitrate) 100 mg Tablet 100 mg PO DAILY 30 Days Qty: 30 0RF Thera 400 mcg Tablet 1 tab PO DAILY 30 Days Qty: 30 1RF Continued Prozac 20 mg Capsule 20 mg PO DAILY 28 mg iron- 800 mcg Tablet 1 tab PO DAILY Discharge Orders: Discharge Order (Routine); Ordered 06/17/22 Ordered By: Ren Palma Referrals: Junie Wynn MD [Staff Physician] - 07/01/22 8:00 am Patient Instructions: Thiamine (By mouth), Folic Acid (By mouth), Pancreatitis (GEN), Alcohol Withdrawal (GEN), Opioid Safety Discharge Attestations Time Spent in Discharge Care*: less than 30 min Quality Metrics Clinical Quality Measures [ No reported AMI, CVA or VTE this stay] Coding Level of Care Code Acute Code for g Fwd Diagnoses Acute alcoholic pancreatitis K85.20 Abdominal pain R10.9 Transaminitis R74.01 Duodenitis K29.80 Hypokalemia E87.6 Acute dehydration E86.0 Nausea & vomiting R11.2
== END 2022-06-17 12:55 | disposition home or self-care (01) | DRG 439 ==
LOC: ER 20:26 → MEDSURG 06-16 07:39
PROVIDERS: Admitting Provider Family Medicine; Emergency Provider Emergency Medicine; Visit Provider Internal Medicine
DX: K85.20 Alcohol induced acute pancreatitis without necrosis or infection (principal); E87.1 Hypo-osmolality and hyponatremia; F10.139 Alcohol abuse with withdrawal, unspecified; F10.10 Alcohol abuse, uncomplicated; E87.6 Hypokalemia; E86.0 Dehydration; Z66 Do not resuscitate; K29.80 Duodenitis without bleeding
CPT/HCPCS: 36415; 74177; 76705; 80053; 80306; 80307; 81003; 82607; 82746; 83690; 83735; 84100; 84145; 84439; 84443; 84703; 85025; 85610; 85730; 86140; 96365; 96366; 96372; 99285; C9113; J1650; J2060; J2270; J2405; J3411; J3480; J3490; J7030; Q9967